=== PATIENT | male | born 1960 | race Caucasian/White ===

== ENCOUNTER 2016-05-15 01:43 | Emergency (ER) | payer OTHER ==
[~2016-05-15] VITALS: Ht 175.3 cm; Wt 98.4 kg
--- NOTE | 2016-05-15 01:50 | NUR ---
Patient to ER bed 8 to gown for evaluation. Side rails up. Report given to Radha STALLWORTH.
[2016-05-15 01:51] VITALS: BP 181/102; PULSE 62; RESP 18; TEMP 99; O2SAT 98
--- NOTE | 2016-05-15 02:03 | NUR ---
ER MD Gonsalves at bedside for evaluation
--- NOTE | 2016-05-15 02:03 | NUR ---
Patient to ER C/O insomnia for 2 nights and anxiety. States that he ran out of his Xanax prescription, went to primary physician but refused to refil it because it was too close to the old prescription. Patient is anxious, shaky, AAOx4, unlabored rbeathing, no signs of acute distress.
--- NOTE | 2016-05-15 02:23 | NUR ---
Patient given written and verbal discharge instructions and verbalizes understanding. ER MD Gonsalves discussed with patient the results and treatment provided. Patient in stable condition. ID arm band removed. Rx of xanas given. Patient educated on pain management and to follow up with PMD. Pain Scale 0/10. Opportunity for questions provided and answered.
== END 2016-05-15 02:23 | disposition home or self-care (01) ==
LOC: SED 01:43
DX: F41.9 Anxiety disorder, unspecified (principal); G47.00 Insomnia, unspecified; R03.0 Elevated blood-pressure reading, without diagnosis of hypertension
CPT/HCPCS: 99283; 99284

== ENCOUNTER 2016-05-15 05:00 | Emergency (ER) | payer OTHER ==
[~2016-05-15] VITALS: Ht 175.3 cm; Wt 97.5 kg
[2016-05-15 05:00] VITALS: BP 176/102; PULSE 78; RESP 18; TEMP 98; O2SAT 98
--- NOTE | 2016-05-15 05:00 | NUR ---
Patient to ER bed 5 to gown for evaluation. Side rails up. Report given to Linda STALLWORTH.
[2016-05-15] MEDS ORDERED: LORazepam 2 MG/ML VIAL IM ONE (05:15)
--- NOTE | 2016-05-15 05:20 | NUR ---
Pt presents to the ER for the second time this evening for anxiety. Pt was given prescription for Xanax earlier today; however pt never left facility to get prescription. Pt insisting to be admitted again for immediate relief for his anxiety. Pt restless, complaining that he has been out of his Xanax for x2 days. Pt remains free from s/s of respiratory distress. Pt reports no pain at this time. Will continue to monitor.
[2016-05-15] MEDS ORDERED: LORazepam 2 MG/ML VIAL (FOR ER USE) ONE (05:21)
--- NOTE | 2016-05-15 05:23 | NUR ---
ER Dr. Gonsalves at bedside examining patient.
--- NOTE | 2016-05-15 06:30 | NUR ---
Patient walk while closing his eyes in a straight line, no s/s of impairment and cleared via MD.
[2016-05-15 06:34] VITALS: BP 151/86; PULSE 69; RESP 18; TEMP 98.1; O2SAT 96
--- NOTE | 2016-05-15 06:34 | NUR ---
Patient given written and verbal discharge instructions and verbalizes understanding. ER MD discussed with patient the results and treatment provided. Patient in stable condition. ID arm band removed. Patient educated on anxiety management and to follow up with PMD. Opportunity for questions provided and answered.
== END 2016-05-15 06:34 | disposition home or self-care (01) ==
LOC: SED 05:00
DX: F41.9 Anxiety disorder, unspecified (principal); G47.00 Insomnia, unspecified; R03.0 Elevated blood-pressure reading, without diagnosis of hypertension; R53.83 Other fatigue
CPT/HCPCS: 96372; 99284; J2060